=== PATIENT | male | born 1980 | race Caucasian/White ===

== ENCOUNTER 2018-10-11 16:44 | Emergency (ER) | payer BC ==
[~2018-10-11] VITALS: Ht 167.6 cm; Wt 77.0 kg
[2018-10-11] MEDS ORDERED: AMOXICILLIN875 MG PO (17:56)
[2018-10-11] MEDS ORDERED: PREDNISONE20 MG PO (17:59)
[2018-10-11 18:00] VITALS: BP 166/89
== END 2018-10-11 18:00 | disposition home or self-care (01) | DRG 153 ==
LOC: ED 16:44
DX: J03.90 Acute tonsillitis, unspecified (principal); K04.7 Periapical abscess without sinus; S02.5XXA Fracture of tooth (traumatic), initial encounter for closed fracture; F17.210 Nicotine dependence, cigarettes, uncomplicated; H92.02 Otalgia, left ear
CPT/HCPCS: J0561

== ENCOUNTER 2020-04-29 16:43 | Emergency (ER) | payer BC ==
[~2020-04-29] VITALS: Ht 167.6 cm; Wt 77.3 kg
[~2020-04-29 16:43] MED LIST: AMOXICILLIN875 MG PO; PREDNISONE20 MG PO
[2020-04-29 17:34] LABS: HEMATOCRIT 40.1 % (39.0-50.0); HEMOGLOBIN 13.6 g/dl (14.0-18.0); IMMATURE GRANULOCYTES 0.6 % (0.0-5.0); MEAN CELL VOLUME 93.9 fL CALC (80.0-100.0); MEAN CORPUSCULAR HGB 31.9 pG CALC (26.0-32.0); MEAN CORPUSCULAR HGB CONC 33.9 g/dL CAL (32.0-36.0); NEUT# 5.97 thou/uL (1.82-7.42); RED BLOOD COUNT 4.27 mill/uL (4.70-6.10); RED CELL DISTRI WIDTH 12.2 % (11.5-15.5)
[2020-04-29 17:55] LABS: ALBUMIN 3.6 g/dL (3.2-5.0); ALKALINE PHOSPHATASE 50 u/l (38-126); ANION GAP 10 (6-22 (CALC)); BILIRUBIN, TOTAL 0.4 mg/dL (0.0-1.4); BUN 8 mg/dL (9-20); BUN/CREATININE RATIO 10 (12-20 (CALC)); CARBON DIOXIDE 23 mmol/l (22-30); CHLORIDE 111 mmol/l (95-108); CREATININE 0.8 mg/dL (0.7-1.3); ETHYL ALCOHOL 215 mg/dl (0-30); GFR > 60 ML/MIN (>=60 (CALC)); GFR FOR AFR.AMER. > 60 ML/MIN (>=60 (CALC)); POTASSIUM 3.6 mmol/l (3.5-5.1); SGOT/AST 23 u/l (17-59); SODIUM 141 mmol/l (137-146)
[2020-04-29 19:15] VITALS: BP 104/61
== END 2020-04-29 19:15 | disposition home or self-care (01) | DRG 999 ==
LOC: ED 16:43
PROVIDERS: Family Medicine
PROC: 0HQ1XZZ Repair Face Skin, External Approach (ICD-10-PCS; principal; 2020-04-29)
DX: S01.81XA Laceration without foreign body of other part of head, initial encounter (principal); S06.9X1A Unspecified intracranial injury with loss of consciousness of 30 minutes or less, initial encounter; F10.129 Alcohol abuse with intoxication, unspecified; F17.200 Nicotine dependence, unspecified, uncomplicated; Y00.XXXA Assault by blunt object, initial encounter; Y92.009 Unspecified place in unspecified non-institutional (private) residence as the place of occurrence of the external cause; Y90.7 Blood alcohol level of 200-239 mg/100 ml

== ENCOUNTER 2020-05-06 18:03 | Emergency (ER) | payer SELFPAY ==
[~2020-05-06] VITALS: Ht 167.6 cm; Wt 160.0 kg
[2020-05-06 18:15] VITALS: BP 174/76
== END 2020-05-06 18:15 | disposition home or self-care (01) | DRG 605 ==
LOC: ED 18:03
DX: S01.90XA Unspecified open wound of unspecified part of head, initial encounter (principal); X58.XXXA Exposure to other specified factors, initial encounter; F17.200 Nicotine dependence, unspecified, uncomplicated

== ENCOUNTER 2022-02-02 10:35 | Emergency (ER) | payer SELFPAY ==
[2022-02-02] VITALS (14 sets, daily range): BP systolic 127–164; BP diastolic 87–103
[~2022-02-02] VITALS: Ht 167.6 cm; Wt 81.8 kg
[2022-02-02 11:09] LABS: IMMATURE GRANULOCYTES 0.2 % (0.0-5.0); MEAN CORPUSCULAR HGB 33.2 pG CALC (26.0-32.0); MEAN CORPUSCULAR HGB CONC 35.3 g/dL CAL (32.0-36.0); NEUT# 8.35 thou/uL (1.82-7.42); RED BLOOD COUNT 5.48 mill/uL (4.70-6.10)
[2022-02-02 11:21] LABS: HEMATOCRIT 51.5 % (39.0-50.0); HEMOGLOBIN 18.2 g/dl (14.0-18.0)
[2022-02-02 11:36] LABS: AMYLASE 85 u/l (30-110); ANION GAP 20 (6-22 (CALC)); BUN 13 mg/dL (9-20); BUN/CREATININE RATIO 15 (12-20 (CALC)); CARBON DIOXIDE 19 mmol/l (22-30); CHLORIDE 100 mmol/l (95-108); CREATININE 0.9 mg/dL (0.7-1.3); ETHYL ALCOHOL 0 mg/dl (0-30); GFR FOR AFR.AMER. > 60 ML/MIN (>=60 (CALC)); GFR OTHER RACES > 60 ML/MIN (>=60 (CALC)); LIPASE 126 u/l (23-300); POTASSIUM 3.4 mmol/l (3.5-5.1); SGOT/AST 35 u/l (17-59); SODIUM 135 mmol/l (137-146)
[2022-02-02 11:38] LABS: ALKALINE PHOSPHATASE 115 u/l (38-126); BILIRUBIN, TOTAL 1.6 mg/dL (0.0-1.4); TOTAL PROTEIN 8.8 g/dL (6.3-8.2)
[2022-02-02 12:26] LABS: URINE BILIRUBIN - DIPSTICK NEGATIVE (NEGATIVE); URINE BLOOD DIPSTICK NEGATIVE (NEGATIVE); URINE COLOR YELLOW; URINE GLUCOSE - DIPSTICK NEGATIVE (NEGATIVE); URINE KETONE >=80 mg/dL (NEGATIVE); URINE LEUK ESTERASE NEGATIVE (NEGATIVE); URINE PH 5.5 (4.5-8.0); URINE PROTEIN - DIPSTICK 100 mg/dL (NEG-TRACE); URINE SPECIFIC GRAVITY >=1.030; URINE UROBILINOGEN - DIPSTICK 0.2 E.U./dL (0.2)
[2022-02-02 12:28] LABS: URINE NITRITE - DIPSTICK NEGATIVE (Negative)
[2022-02-02 12:29] LABS: URINE EPITHELIAL CELLS FEW EPI/hpf (0-FEW); URINE MUCUS MODERATE hpf (NONE-FEW)
[2022-02-02] MEDS ORDERED: LIBRIUM25 MG PO (13:38)
[2022-02-02] MEDS ORDERED: PROTONIX40 MG PO (13:38)
== END 2022-02-02 13:55 | disposition home or self-care (01) | DRG 392 ==
LOC: ED 10:35
DX: K29.20 Alcoholic gastritis without bleeding (principal); F10.239 Alcohol dependence with withdrawal, unspecified; E86.0 Dehydration; F17.200 Nicotine dependence, unspecified, uncomplicated; Z20.822 Contact with and (suspected) exposure to COVID-19
CPT/HCPCS: S0164